=== PATIENT | male | born 1985 | race Caucasian/White ===

== ENCOUNTER 2017-01-26 02:26 | Emergency (ER) | payer SELFPAY ==
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
== END 2017-01-26 05:00 | disposition home or self-care (01) ==
LOC: ER 02:26
DX: F10.129 Alcohol abuse with intoxication, unspecified (principal); S01.91XA Laceration without foreign body of unspecified part of head, initial encounter; K85.90 Acute pancreatitis without necrosis or infection, unspecified; F17.210 Nicotine dependence, cigarettes, uncomplicated; Z91.030 Bee allergy status; Y04.2XXA Assault by strike against or bumped into by another person, initial encounter

== ENCOUNTER 2017-01-27 14:24 | Emergency (ER) | payer SELFPAY ==
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
== END 2017-01-27 17:35 | disposition home or self-care (01) ==
LOC: ER 14:24
DX: R10.13 Epigastric pain (principal); R94.5 Abnormal results of liver function studies; F10.129 Alcohol abuse with intoxication, unspecified; Y90.8 Blood alcohol level of 240 mg/100 ml or more; F17.210 Nicotine dependence, cigarettes, uncomplicated; Z91.030 Bee allergy status